=== PATIENT | male | born 1975 | race Caucasian/White ===

== ENCOUNTER 2017-07-29 23:41 | Inpatient (IN) | payer SELFPAY ==
[~2017-07-29] VITALS: Ht 190.5 cm; Wt 110.5 kg
[2017-07-29 23:47] VITALS: BP 151/100; PULSE 57; RESP 18; TEMP 98.3; O2SAT 100
[2017-07-30] VITALS (30 sets, daily range): BP systolic 112–201; BP diastolic 61–123; PULSE 52–90; RESP 15–22; TEMP 99.3–101.7; O2SAT 86–100
[2017-07-30] MEDS ORDERED: ONDANSETRON HCL 4 MG/2 ML VIAL IV PUSH ONE (00:45)
[2017-07-30] MEDS ORDERED: LORazepam 2 MG/ML VIAL ONE ×2 (00:56→01:31)
[2017-07-30] MEDS ORDERED: ROCURONIUM INJ 50 MG/5 ML VIAL ONE (01:23)
[2017-07-30] MEDS ORDERED: ETOMIDATE 40 MG/20 ML VIAL ONE (01:23)
[2017-07-30] MEDS ORDERED: PROPOFOL 500 MG/50 ML INJ 50 ML ONE (01:30)
[2017-07-30] MEDS ORDERED: niCARdipine 25 MG/NS 250 ML Vial2Bag or IV room IV PRN ×2 (01:30)
--- NOTE | 2017-07-30 01:30 | RADRPT ---
EXAM DATE/TIME: 07/30/2017 01:07 [facility] COMPARISON: No previous studies available for comparison. INDICATIONS : Cephalgia; seizure. RADIATION DOSE: 34.69 CTDIvol (mGy) MEDICAL HISTORY : Non-responsive. SURGICAL HISTORY : Non-responsive. ENCOUNTER: Initial ACUITY: 1 day PAIN SCALE: 6/10 LOCATION: cranial TECHNIQUE: Multiple contiguous axial images were obtained of the head. Using automated exposure control and adj ustment of the mA and/or kV according to patient size, radiation dose was kept as low as reasonably a chievable to obtain optimal diagnostic quality images. DICOM format image data is available electro nically for review and comparison. FINDINGS: CEREBRUM: There is subarachnoid hemorrhage seen in the suprasellar region and at the sylvian fissure regions. T he most prominent area of hemorrhage is in the right suprasellar cistern region. There is interventri cular hemorrhage in the lateral, third and fourth ventricles. There is effacement of cortical sulci. The ventricles are normal for age. No evidence of midline shift, mass lesion or acute infarction. N o focal extra-axial fluid collections are seen. POSTERIOR FOSSA: Subarachnoid hemorrhage is seen around the brainstem. The cerebellum and brainstem are intact. The 4 th ventricle is midline. The cerebellopontine angle is unremarkable. EXTRACRANIAL: The visualized portion of the orbits is intact. SKULL: The calvaria is intact. No evidence of skull fracture. CONCLUSION: Subarachnoid hemorrhage and interventricular hemorrhage. The most prominent area of focal hemorrhage is at the right suprasellar cistern region. An underlying aneurysm can be suspected. Sukhdev Damon MD on July 30, 2017 at 1:22 Board Certified Radiologist. This report was verified electronically.
--- NOTE | 2017-07-30 01:54 | PD ---
HPI Chief Complaint: GI Complaint Time Seen by Provider: 00:11 Travel History International Travel<30 days: No Contact w/Intl Traveler<30days: No Traveled to known affect area: No History of Present Illness HPI 42yo M with no significant PMH presents to the ED with c/o headache that started suddenly at 10pm. Pt's girlfriend said he had 2 episodes of stiffening up and grunting and not responding prior to coming. Said each episode lasted 2- 3 minutes. Pt is complaining about headache in the base of the head. Denies any fever, chest pain, sob, abdominal pain, focal weakness or numbness. Pt had nausea and vomiting as well. Denies any history of aneurysm. PFSH Past Medical History Medical History: Denies Significant Hx Diminished Hearing: No Tetanus Vaccination: Unknown Influenza Vaccination: No Past Surgical History Surgical History: No Previous Surgery Social History Alcohol Use: Yes (OCC) Tobacco Use: No Substance Use: No Allergies-Medications (Allergen,Severity, Reaction): Coded Allergies: No Known Allergies (Unverified , 07/29/17) Review of Systems Except as stated in HPI: all other systems reviewed are Neg Physical Exam Narrative GENERAL: 42yo M in moderate distress. SKIN: Focused skin assessment warm/dry. HEAD: Atraumatic. Normocephalic. EYES: Pupils equal and round at 3mm bilaterally. No scleral icterus. No injection or drainage. ENT: No nasal bleeding or discharge. Mucous membranes pink and moist. NECK: Trachea midline. No JVD. CARDIOVASCULAR: Regular rate and rhythm. No murmur appreciated. RESPIRATORY: No accessory muscle use. Clear to auscultation. Breath sounds equal bilaterally. GASTROINTESTINAL: Abdomen soft, non-tender, nondistended. Hepatic and splenic margins not palpable. MUSCULOSKELETAL: No obvious deformities. No clubbing. No cyanosis. No edema. NEUROLOGICAL: Awake and alert. No obvious cranial nerve deficits. Motor grossly within normal limits. Normal speech. PSYCHIATRIC: Appropriate mood and affect; insight and judgment normal. Data Data Last Documented VS Vital Signs Date Time Temp Pulse Resp B/P (MAP) Pulse Ox O2 Delivery O2 Flow Rate FiO2 07/30/17 02:45 100.8 72 16 117/67 (84) 100 Ventilator 100 07/30/17 01:[address] Brain W/O Iv Contrast(Rout) (07/30/17 ) Ondansetron Inj (Zofran Inj) (07/30/17 00:45) Lorazepam Inj (Ativan Inj) (07/30/17 00:56) Complete Blood Count With Diff (07/30/17 01:09) Comprehensive Metabolic Panel (07/30/17 01:09) Prothrombin Time / Inr (Pt) (07/30/17 01:09) Act Partial Throm Time (Ptt) (07/30/17 01:09) Magnesium (Mg) (07/30/17 01:09) Nicardipine Inj (Cardene Inj) (07/30/17 01:30) Rocuronium Inj (Zemuron Inj) (07/30/17 01:23) Etomidate Inj (Amidate Inj) (07/30/17 01:23) Propofol 500 Mg/50 Ml Inj (Diprivan 500 (07/30/17 01:30) Lorazepam Inj (Ativan Inj) (07/30/17 01:31) Chest, Single Ap (07/30/17 ) Cta Neck W Iv Contrast W 3d (07/30/17 ) Cta Brain W Iv Contrast W 3d (07/30/17 ) Nimodipine (Nimotop) (07/30/17 04:00) Propofol 1000 Mg/100 Ml Inj (Diprivan 10 (07/30/17 02:00) Electrocardiogram (07/30/17 ) Urinary Catheter Insert/Apply (07/30/17 02:26) Restraints Non-Violent SOULEYMANE.Q3H (07/30/17 02:26) Etomidate Inj (Amidate Inj) (07/30/17 02:30) Rocuronium Inj (Zemuron Inj) (07/30/17 02:30) Admit Order (Ed Use Only) (07/30/17 02:48) Lorazepam Inj (Ativan Inj) (07/30/17 03:00) Labs Laboratory Tests Test 07/30/17 01:45 White Blood Count 18.5 TH/MM3 Red Blood Count 4.67 MIL/MM3 Hemoglobin 13.3 GM/DL Hematocrit 39.7 % Mean Corpuscular Volume 85.1 FL Mean Corpuscular Hemoglobin 28.5 PG Mean Corpuscular Hemoglobin Concent 33.5 % Red Cell Distribution Width 13.5 % Platelet Count 298 TH/MM3 Mean Platelet Volume 9.3 FL Neutrophils (%) (Auto) 83.3 % Lymphocytes (%) (Auto) 11.5 % Monocytes (%) (Auto) 4.3 % Eosinophils (%) (Auto) 0.5 % Basophils (%) (Auto) 0.4 % Neutrophils # (Auto) 15.4 TH/MM3 Lymphocytes # (Auto) 2.1 TH/MM3 Monocytes # (Auto) 0.8 TH/MM3 Eosinophils # (Auto) 0.1 TH/MM3 Basophils # (Auto) 0.1 TH/MM3 CBC Comment DIFF FINAL Differential Comment Prothrombin Time 10.2 SEC Prothromb Time International Ratio 1.0 RATIO Activated Partial Thromboplast Time 22.0 SEC Blood Urea Nitrogen 19 MG/DL Creatinine 0.94 MG/DL Random Glucose 151 MG/DL Total Protein 7.0 GM/DL Albumin 3.9 GM/DL Calcium Level 8.0 MG/DL Magnesium Level 1.9 MG/DL Alkaline Phosphatase 62 U/L Aspartate Amino Transf (AST/SGOT) 20 U/L Alanine Aminotransferase (ALT/SGPT) 33 U/L Total Bilirubin 0.3 MG/DL Sodium Level 142 MEQ/L Potassium Level 3.3 MEQ/L Chloride Level 106 MEQ/L Carbon Dioxide Level 28.6 MEQ/L Anion Gap 7 MEQ/L Estimat Glomerular Filtration Rate 87 ML/MIN Phosphorus Level 2.4 MG/DL Total Creatine Kinase 302 U/L MDM Medical Decision Making Medical Screen Exam Complete: Yes Emergency Medical Condition: Yes Interpretation(s) EKG: NSR 72bpm. Normal axis. ST depression lateral leads Differential Diagnosis SAH vs. tumor vs. new onset seizure vs. electrolyte abnormality Narrative Course 42yo M with sudden onset headache at 10pm today. Pt had what sounds like 2 episodes of seizure prior to arrival. Pt then had another episode of seizure where his bilateral upper extremities were stiff and pt was not responding. Pt given 2mg of ativan and seizure resolved. Lasted less than a minute. Pt was at CT scan when another episode of seizure occurred and he was given ativan 2mg IV. Pt started becoming very hypertensive and tachycardic. CT brain showed subarachnoid hemorrhage and interventricular hemorrhage. Pt was emergently intubated in the ED. Neurosurgeon Dr. Greenfield was emergently consulted and recommends admission to ICU and started pt on nimodipine via OG tube. Recommend CTA brain and neck which was ordered. I discussed with pt's girlfriend and answered all questions. Nicardipine was initially ordered but not given since blood pressure is not elevated. Pt given nimodipine. Labs reviewed, leukocytosis [id number]. 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 Discussed with Dr. Ricardo and accepted to his service. Critical Care Narrative Aggregate critical care time was 60 minutes. Time to perform other separately billable procedures was not included in the critical care time. My time did not include minutes spent treating any other patients simultaneously or on activities that did not directly contribute to the patient's treatment. The services I provided to this patient were to treat and/or prevent clinically significant deterioration that could result in: cardiovascular collapse or . I provided critical care services requiring my management, as noted below: Chart data review, documentation time, medication orders and management, vital sign assessments/reviewing monitor data, ordering and reviewing lab tests, ordering and interpreting/reviewing x-rays and diagnostic studies, care of the patient and discussion of the patient with the admitting physicians. Procedures Procedure Narrative The patient was put in optimal position for the procedure. Rapid sequence intubation was initiated by me using 30 milligrams of etomidate IV and 100 milligrams of rocuronium IV. The patient was intubated with a 8.5 cuffed endotracheal tube. Tube placement was confirmed by visualization of the tube and balloon passing through the cords, capnometry and subsequent chest x-ray. Breath sounds were equal and well aerated bilaterally postintubation. No breath sounds over stomach. 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
[2017-07-30] MEDS ORDERED: PROPOFOL 1000 MG/100 ML INJ 100 ML IV PRN ×2 (02:00→03:30)
[2017-07-30 02:06] LABS: AUTOMATED NEUTROPHIL # 15.4 TH/MM3 (1.8-7.7); BASOPHIL # 0.1 TH/MM3 (0-0.2); BASOPHIL % 0.4 % (0.0-2.0); EOSINOPHIL # 0.1 TH/MM3 (0-0.4); EOSINOPHIL % 0.5 % (0.0-4.0); HEMATOCRIT 39.7 % (39.0-51.0); HEMOGLOBIN 13.3 GM/DL (13.0-17.0); LYMPH % 11.5 % (9.0-44.0); LYMPHOCYTE # 2.1 TH/MM3 (1.0-4.8); MEAN CELL VOLUME 85.1 FL (80.0-100.0); MEAN CORPUSCULAR HEMOGLOBIN 28.5 PG (27.0-34.0); MEAN CORPUSCULAR HGB CONC 33.5 % (32.0-36.0); MEAN PLATELET VOLUME 9.3 FL (7.0-11.0); MONO % 4.3 % (0.0-8.0); MONOCYTE # 0.8 TH/MM3 (0-0.9); NEUT % 83.3 % (16.0-70.0); PLATELET COUNT 298 TH/MM3 (150-450); RED BLOOD COUNT 4.67 MIL/MM3 (4.50-5.90); RED CELL DISTRIBUTION WIDTH 13.5 % (11.6-17.2); WHITE BLOOD COUNT 18.5 TH/MM3 (4.0-11.0)
--- NOTE | 2017-07-30 02:10 | RADRPT ---
EXAM DATE/TIME: 07/30/2017 01:43 [facility] COMPARISON: No previous studies available for comparison. INDICATIONS : Post intubation MEDICAL HISTORY : Non-responsive SURGICAL HISTORY : Non-responsive ENCOUNTER: Initial ACUITY: 1 day PAIN SCORE: Non-responsive. LOCATION: Bilateral chest FINDINGS: The ET tube is well placed with the tip 2.7 cm from the poncho. The NG tube is directed into the stom ach. The heart size is normal. The lungs are clear. CONCLUSION: ET tube and NG tube in good position. Sukhdev Damon MD on July 30, 2017 at 2:07 Board Certified Radiologist. This report was verified electronically.
[2017-07-30 02:15] LABS: PROTHROMBIN TIME - PATIENT 10.2 SEC (9.8-11.6)
[2017-07-30 02:27] LABS: ALBUMIN 3.9 GM/DL (3.4-5.0); ALT (GPT) 33 U/L (12-78); AST (GOT) 20 U/L (15-37); BICARBONATE 28.6 MEQ/L (21.0-32.0); BLOOD UREA NITROGEN 19 MG/DL (7-18); CHLORIDE 106 MEQ/L (98-107); CREATININE 0.94 MG/DL (0.60-1.30); GLOMERULAR FILTRATION RATE 87 ML/MIN (>89); GLUCOSE,RANDOM 151 MG/DL (74-106); MAGNESIUM 1.9 MG/DL (1.5-2.5); SODIUM (NA) 142 MEQ/L (136-145)
[2017-07-30 02:30] LABS: ALKALINE PHOSPHATASE 62 U/L (45-117); TOTAL BILIRUBIN ADULT 0.3 MG/DL (0.2-1.0)
[2017-07-30] MEDS ORDERED: ETOMIDATE 20 MG/10 ML VIAL IV PUSH ONE (02:30)
[2017-07-30] MEDS ORDERED: ROCURONIUM INJ 100 MG/10 ML VIAL IV ONE (02:30)
[2017-07-30] MEDS ORDERED: LORazepam 2 MG/ML VIAL IV PUSH ONE (03:00)
[2017-07-30] MEDS ORDERED: IOHEXOL 350 MG/ML 10 ML VIAL (for RAD DIAG) IVCONTRAST ONE (03:16)
[2017-07-30] MEDS ORDERED: SODIUM CHLOR 0.9% 1000 ML INJ 1,000 ML IV SCH (03:19)
[2017-07-30] MEDS ORDERED: POTASSIUM PHOSPHATE MONOBASIC 500 MG TAB PO/TUBE PRN (03:30)
[2017-07-30] MEDS ORDERED: ONDANSETRON HCL 4 MG/2 ML VIAL IV PUSH PRN (03:30)
[2017-07-30] MEDS ORDERED: POTASSIUM CHLORIDE 25 MEQ EFFERVESCENT TAB PO PRN (03:30)
[2017-07-30] MEDS ORDERED: POTASSIUM CHLOR 40 MEQ PREMIX 100 ML IV PRN ×2 (03:30)
[2017-07-30] MEDS ORDERED: POTASSIUM PHOSPHATE INJ 30 MMOL in SODIUM CHLOR 0.9% 250 ML INJ 250 ML IV PRN (03:30)
[2017-07-30] MEDS ORDERED: MAGNESIUM OXIDE 400 MG TAB PO PRN (03:30)
[2017-07-30] MEDS ORDERED: POTASSIUM PHOSPHATE MONOBASIC 500 MG TAB PO PRN (03:30)
[2017-07-30] MEDS ORDERED: SENNOSIDES 8.6 MG TAB PO PRN (03:30)
[2017-07-30] MEDS ORDERED: MAGNESIUM HYDROXIDE SUSP 30 ML CUP PO PRN (03:30)
[2017-07-30] MEDS ORDERED: SODIUM PHOSPHATE INJ 30 MMOL in SODIUM CHLOR 0.9% 250 ML INJ 240 ML IV PRN (03:30)
[2017-07-30] MEDS ORDERED: MAGNESIUM SULFATE INJ 2 GM in SODIUM CHLORIDE 0.9% INJ 96 ML IV PRN (03:30)
[2017-07-30] MEDS ORDERED: SODIUM CHLORIDE 0.9% FLUSH 10 ML FLUSH IV FLUSH PRN (03:30)
[2017-07-30] MEDS ORDERED: MISCELLANEOUS NURSING INFORMATION XX SCH (03:30)
[2017-07-30] MEDS ORDERED: LORazepam 2 MG/ML VIAL IV PUSH PRN (03:30)
[2017-07-30] MEDS ORDERED: MAGNESIUM SULFATE INJ 4 GM in SODIUM CHLORIDE 0.9% INJ 92 ML IV PRN (03:30)
[2017-07-30] MEDS ORDERED: MORPHINE SULFATE 2 MG/ML INJ IV PUSH PRN (03:30)
[2017-07-30] MEDS ORDERED: LACTULOSE SYRUP 20 GM/30 ML CUP PO PRN (03:30)
[2017-07-30] MEDS ORDERED: CHLORHEXIDINE GLUCONATE 2 % 1 PACK (2 CLOTHS) TOP PRN (03:30)
[2017-07-30] MEDS ORDERED: niCARdipine INJ 25 MG in SODIUM CHLOR 0.9% 250 ML INJ 240 ML IV PRN (03:30)
[2017-07-30] MEDS ORDERED: BISACODYL 10 MG SUPP RECTAL PRN (03:30)
[2017-07-30] MEDS ORDERED: RESP: ALBUTEROL 2.5 MG/IPRATROPIUM 0.5 MG NEB (PRN) INH (03:30)
[2017-07-30] MEDS ORDERED: ACETAMINOPHEN 325 MG TAB PO PRN (03:30)
[2017-07-30] MEDS ORDERED: POTASSIUM CHLOR 20 MEQ PREMIX 100 ML IV PRN ×2 (03:30)
[2017-07-30] MEDS ORDERED: MIDAZOLAM HCL 2 MG/2 ML VIAL IV PUSH PRN (03:30)
--- NOTE | 2017-07-30 03:38 | RADRPT ---
EXAM DATE/TIME: 07/30/2017 02:59 [facility] COMPARISON: No previous studies available for comparison. INDICATIONS : Cephalgia. IV CONTRAST: 75 cc Omnipaque 350 (iohexol) IV ; Cumulative dose for multiple exams. RADIATION DOSE: 10.71 CTDIvol (mGy) ; Combined studies MEDICAL HISTORY : None SURGICAL HISTORY : None. ENCOUNTER: Initial ACUITY: 1 day PAIN SCALE: Non-responsive LOCATION: cranial TECHNIQUE: Volumetric scanning was performed using a multi-row detector CT scanner. The data was post processed with a variety of visualization algorithms including full volume maximum intensity projection, multi -planar sliding thin slab reformation, curved planar reformation, and surface rendering techniques. Using automated exposure control and adjustment of the mA and/or kV according to patient size, radiat ion dose was kept as low as reasonably achievable to obtain optimal diagnostic quality images. DICO M format image data is available electronically for review and comparison. FINDINGS: There is a 1.3 x 1.2 x 0.9 cm aneurysm seen in the posterior fossa. This is at the anastomosis betwee n the 2 vertebral arteries at the base of the proximal basilar artery. No other aneurysm is seen. The arterial structures otherwise appear normal. 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 Sukhdev Damon MD on July 30, 2017 at 3:33 Board Certified Radiologist. This report was verified electronically.
--- NOTE | 2017-07-30 03:52 | HHI.HP ---
HPI Service Critical Care Medicine Primary Care Physician No Primary Care Physician Admission Diagnosis SAH Diagnosis: Travel History International Travel<30 Days: No Contact w/Intl Traveler <30 Da: No Traveled to Known Affected Are: No History of Present Illness 42-year-old gentleman with no significant PMH presents with complaints of headache that started suddenly at 10pm. Per chart report and the patient's girlfriend he had 2 episodes of stiffening up and grunting and not responding prior to coming. She said each episode lasted 2-3 minutes. In the emergency department the patient was complaining of headache in the base of the head. Denies any fever, chest pain, sob, abdominal pain, focal weakness or numbness. He had another episode of seizure-like activity in the CAT scan and was intubated by ED attending for an airway protection. The CT head shows subarachnoid bleed with intraventricular extension. The case was discussed with neurosurgeon furnace mason who recommended nimodipine and CTA. Further recommendations pending based on CT results. Review of Systems ROS Unobtainable patient is sedated and intubated Past Family Social History Allergies: Coded Allergies: No Known Allergies (Unverified , 07/29/17) Past Medical History None Past Surgical History None Reported Medications None Active Ordered Medications Current Medications Medications (Trade) Dose Ordered Sig/Erin Route PRN Reason Start Time Stop Time Status Last Admin Dose Admin Nimodipine (Nimotop) 60 mg Q4HR NG 07/30/17 04:00 07/30/17 02:09 Propofol 100 ml @ 6.27 mls/hr TITRATE PRN IV SEDATION 07/30/17 02:00 07/30/17 02:39 Potassium Chloride 100 ml @ 50 mls/hr Q2H PRN IV For Potassium 2.8 - 3.2 mEq/L 07/30/17 03:30 Potassium Chloride 100 ml @ 50 mls/hr Q2H PRN IV For Potassium 2.8 - 3.2 mEq/L 07/30/17 03:30 Potassium Bicarb/ Potassium Chloride (K-Lyte Cl Eff) 50 meq UNSCH PRN PO For Potassium 3.3 - 3.5 mEq/L 07/30/17 03:30 Potassium Chloride 100 ml @ 25 mls/hr UNSCH PRN IV For Potassium 3.3 - 3.5 mEq/L 07/30/17 03:30 Potassium Chloride 100 ml @ 50 mls/hr Q2H PRN IV For Potassium 3.3 - 3.5 mEq/L 07/30/17 03:30 Magnesium Sulfate 4 gm/Sodium Chloride 100 ml @ 50 mls/hr UNSCH PRN IV For Magnesium 0.9 - 1.1 mg/dL 07/30/17 03:30 Magnesium Oxide (Mag-Ox) 800 mg UNSCH PRN PO For Magnesium 1.2 - 1.6 mg/dL 07/30/17 03:30 Magnesium Sulfate 2 gm/Sodium Chloride 100 ml @ 50 mls/hr UNSCH PRN IV For Magnesium 1.2 - 1.6 mg/dL 07/30/17 03:30 Potassium Phosphate (K-Phos) 2,000 mg Q4H PRN PO For Phosphorus < 2.5 mg/dL 07/30/17 03:30 Sodium Phosphate 30 mmol/Sodium Chloride 250 ml @ 42 mls/hr UNSCH PRN IV For Phosphorus < 2.5 mg/dL 07/30/17 03:30 Potassium Phosphate (K-Phos) 2,000 mg UNSCH PRN PO/TUBE SEE LABEL COMMENTS 07/30/17 03:30 Potassium Phosphate 30 mmol/ Sodium Chloride 260 ml @ 42 mls/hr UNSCH PRN IV SEE LABEL COMMENTS 07/30/17 03:30 Sodium Chloride 1,000 ml @ 84 mls/hr [id number] IV 07/30/17 03:19 Sodium Chloride (NS Flush) 2 ml UNSCH PRN IV FLUSH FLUSH AFTER USING IV ACCESS 07/30/17 03:30 UNV Sodium Chloride (NS Flush) 2 ml BID IV FLUSH 07/30/17 09:00 UNV Acetaminophen (Tylenol) 650 mg Q6H PRN PO PAIN 1-5 AND/OR FEVER >101F 07/30/17 03:30 UNV Morphine Sulfate (Morphine Inj) 2 mg Q2H PRN IV PUSH PAIN SCALE 6 TO 10 07/30/17 03:30 UNV Famotidine (Pepcid Inj) 20 mg Q12HR IV PUSH 07/30/17 09:00 UNV Midazolam HCl (Versed Inj) 2 mg Q1H PRN IV PUSH SEDATION 07/30/17 03:30 UNV Lorazepam (Ativan Inj) 1 mg Q1H PRN IV PUSH seizure 07/30/17 03:30 Artificial Tears (Tears Naturale Opth Soln) 1 drop TID EACH EYE 07/30/17 09:00 UNV Ondansetron HCl (Zofran Inj) 4 mg Q6H PRN IV PUSH NAUSEA OR VOMITING 07/30/17 03:30 UNV Albuterol/ Ipratropium (Duoneb Neb) 1 ampule Q2HR NEB PRN INH WHEEZING 07/30/17 03:30 UNV Miscellaneous Information 1 [id number] XX 07/30/17 03:30 UNV Chlorhexidine Gluconate (Chlorhexidine 2% Cloth) 3 pack Taper DAILY@04 TOP 07/30/17 04:00 07/26/18 03:59 UNV Chlorhexidine Gluconate (Chlorhexidine 2% Cloth) 3 pack UNSCH PRN TOP HYGIENIC CARE 07/30/17 03:30 UNV Senna/Docusate Sodium (Amaya-Colace) 1 tab BID PO 07/30/17 09:00 UNV Magnesium Hydroxide (Milk Of Magnesia Liq) 30 ml Q12H PRN PO Mild constipation 07/30/17 03:30 UNV Sennosides (Senokot) 17.2 mg Q12H PRN PO Moderate constipation 07/30/17 03:30 UNV Bisacodyl (Dulcolax Supp) 10 mg DAILY PRN RECTAL SEVERE CONSITIPATION 07/30/17 03:30 UNV Lactulose (Lactulose Liq) 30 ml DAILY PRN PO SEVERE CONSITIPATION 07/30/17 03:30 UNV Chlorhexidine Gluconate (Peridex 0.12% Liq) 15 ml BID@08,20 MT 07/30/17 08:00 UNV Propofol 100 ml @ 10 mls/hr TITRATE PRN IV SEDATION 07/30/17 03:30 Levetriacetam 100 ml @ 400 mls/hr Q12HR IV 07/30/17 09:00 UNV Nimodipine (Nimotop) 60 mg Q4HR PO 07/30/17 04:00 UNV Nicardipine HCl 25 mg/Sodium Chloride 250 ml @ 50 mls/hr TITRATE PRN IV Blood pressure management 07/30/17 03:30 UNV Family History Unobtainable Social History Alcohol Use: Yes (OCC) Tobacco Use: No Substance Use: No Physical Exam Vital Signs Vital Signs Date Time Temp Pulse Resp B/P (MAP) Pulse Ox O2 Delivery O2 Flow Rate FiO2 07/30/17 03:11 71 16 120/63 (82) 100 Ventilator 100 07/30/17 02:10 100.0 64 16 131/91 (104) 100 Ventilator 100 07/30/17 02:09 100 07/30/17 02:05 66 16 130/87 (101) 100 Ventilator 100 07/30/17 02:00 62 16 132/90 (104) 100 Ventilator 100 07/30/17 01:55 99.3 80 16 139/84 (102) 100 Ventilator 100 07/30/17 01:52 99.3 68 16 127/78 (94) 100 Ventilator 100 07/30/17 01:48 73 22 137/76 (96) 99 07/30/17 01:36 62 22 122/84 (97) 90 07/30/17 01:26 64 15 201/123 (149) 100 Nasal Cannula 15.00 07/30/17 01:20 99 15.00 100 07/30/17 01:11 52 16 159/77 (104) 99 Nasal Cannula 2.00 07/29/17 23:47 98.3 57 18 151/100 (117) 100 Physical Exam GENERAL: Sedated and intubated SKIN: Focused skin assessment warm/dry. HEAD: Atraumatic. Normocephalic. EYES: Pupils equal and round. No scleral icterus. No injection or drainage. Briskly reactive to light bilaterally ENT: No nasal bleeding or discharge. Mucous membranes pink and moist. NECK: Trachea midline. No JVD. CARDIOVASCULAR: Regular rate and rhythm. No murmur appreciated. RESPIRATORY: No accessory muscle use. Clear to auscultation. Breath sounds equal bilaterally. GASTROINTESTINAL: Abdomen soft, non-tender, nondistended. Hepatic and splenic margins not palpable. MUSCULOSKELETAL: No obvious deformities. No clubbing. No cyanosis. No edema. NEUROLOGICAL: Sedated and intubated. Laboratory Laboratory Tests Test 07/30/17 01:45 White Blood Count 18.5 Red Blood Count 4.67 Hemoglobin 13.3 Hematocrit 39.7 Mean Corpuscular Volume 85.1 Mean Corpuscular Hemoglobin 28.5 Mean Corpuscular Hemoglobin Concent 33.5 Red Cell Distribution Width 13.5 Platelet Count 298 Mean Platelet Volume 9.3 Neutrophils (%) (Auto) 83.3 Lymphocytes (%) (Auto) 11.5 Monocytes (%) (Auto) 4.3 Eosinophils (%) (Auto) 0.5 Basophils (%) (Auto) 0.4 Neutrophils # (Auto) 15.4 Lymphocytes # (Auto) 2.1 Monocytes # (Auto) 0.8 Eosinophils # (Auto) 0.1 Basophils # (Auto) 0.1 CBC Comment DIFF FINAL Differential Comment Prothrombin Time 10.2 Prothromb Time International Ratio 1.0 Activated Partial Thromboplast Time 22.0 Blood Urea Nitrogen 19 Creatinine 0.94 Random Glucose 151 Total Protein 7.0 Albumin 3.9 Calcium Level 8.0 Magnesium Level 1.9 Alkaline Phosphatase 62 Aspartate Amino Transf (AST/SGOT) 20 Alanine Aminotransferase (ALT/SGPT) 33 Total Bilirubin 0.3 Sodium Level 142 Potassium Level 3.3 Chloride Level 106 Carbon Dioxide Level 28.6 Anion Gap 7 Estimat Glomerular Filtration Rate 87 Result Diagram: 07/30/17 0145 07/30/17 0145 Imaging Last [address] 07/30/17 0000 Signed Impressions: Service Date/Time: July 01:07 - CONCLUSION: Subarachnoid hemorrhage and interventricular hemorrhage. The most prominent area of focal hemorrhage is at the right suprasellar cistern region. An underlying aneurysm can be suspected. Sukhdev Damon MD Chest X-Ray 07/30/17 0000 Signed Impressions: Service Date/Time: July 01:43 - CONCLUSION: ET tube and NG tube in good position. Sukhdev Damon MD Septic Shock Reassessment Septic shock perfusion: reassessment completed Caprini VTE Risk Assessment Caprini VTE Risk Assessment: Mod/High Risk (score >= 2) VTE Pharm Contraindication: Hemorrhage Caprini Risk Assessment Model Point Value = 1 Point Value = 2 Point Value = 3 Point Value = 5 Age 41-60 Minor surgery BMI > 25 kg/m2 Swollen legs Varicose veins or History of unexplained or recurrent spontaneous Oral contraceptives or hormone replacement Sepsis (< 1 month) Serious lung disease, including pneumonia (< 1 month) Abnormal pulmonary function Acute myocardial infarction Congestive heart failure (< 1 month) History of inflammatory bowel disease Medical patient at bed rest Age 61-74 Arthroscopic surgery Major open surgery (> 45 min) Laparoscopic surgery (> 45 min) Malignancy Confined to bed (> 72 hours) Immobilizing plaster cast Central venous access Age >= 75 History of VTE Family history of VTE Factor V Leiden Prothrombin [id number] Lupus anticoagulant Anticardiolipin antibodies Elevated serum homocysteine Heparin-induced thrombocytopenia Other congenital or acquired thrombophilia Stroke (< 1 month) Elective arthroplasty Hip, pelvis, or leg fracture Acute spinal cord injury (< 1 month) Prophylaxis Regimen Total Risk Factor Score Risk Level Prophylaxis Regimen 0-1 Low Early ambulation 2 Moderate Order ONE of the following: *Sequential Compression Device (SCD) *Heparin 5000 units SQ BID 3-4 Higher Order ONE of the following medications: *Heparin 5000 units SQ TID *Enoxaparin/Lovenox 40 mg SQ daily (WT < 150 kg, CrCl > 30 mL/min) *Enoxaparin/Lovenox 30 mg SQ daily (WT < 150 kg, CrCl > 10-29 mL/min) *Enoxaparin/Lovenox 30 mg SQ BID (WT < 150 kg, CrCl > 30 mL/min) AND/OR *Sequential Compression Device (SCD) 5 or more Highest Order ONE of the following medications: *Heparin 5000 units SQ TID (Preferred with Epidurals) *Enoxaparin/Lovenox 40 mg SQ daily (WT < 150 kg, CrCl > 30 mL/min) *Enoxaparin/Lovenox 30 mg SQ daily (WT < 150 kg, CrCl > 10-29 mL/min) *Enoxaparin/Lovenox 30 mg SQ BID (WT < 150 kg, CrCl > 30 mL/min) AND *Sequential Compression Device (SCD) Assessment and Plan Assessment and Plan Respiratory failure - Intubated for an airway protection - No weaning until neurologically stable - CXR and ABG daily - Endtital CO2 monitor - goal 31-35 Subarachnoid hemophage - With IVH extension - CTA pending - Intubated for an airway protection - Nimodipine - TCD's daily - Neurosurgical consultation for EVD placement - Cerebral angiogram today Seizure - Due to above - Keppra Hypertension - Nicardipine drip to keep SBP less than 140 Hypokalemia - ICU electrolyte replacement protocol DVT GI prophylaxis - Teds SCDs - No pharmacological DVT prophylaxis due to acute intracranial bleed - Pepcid Critical Care: The total critical care time was 35 minutes. Time to perform other separately billable procedures was not included in the critical care time. Yoel Ricardo MD Jul 30, 2017 3:52 am
[2017-07-30] MEDS ORDERED: CHLORHEXIDINE GLUCONATE 2 % 1 PACK (2 CLOTHS) TOP SCH (04:00)
[2017-07-30] MEDS ORDERED: niMODipine 30 MG CAP PO SCH (04:00)
[2017-07-30] MEDS ORDERED: niMODipine 30 MG CAP NG SCH (04:00)
--- NOTE | 2017-07-30 04:12 | RADRPT ---
EXAM DATE/TIME: 07/30/2017 02:57 [place] COMPARISON: No previous studies available for comparison. INDICATIONS : Cephalgia. IV CONTRAST: 75 cc Omnipaque 350 (iohexol) IV ; Cumulative dose for multiple exams. RADIATION DOSE: 10.71 CTDIvol (mGy) ; Combined studies MEDICAL HISTORY : None SURGICAL HISTORY : None. ENCOUNTER: Initial ACUITY: 1 day PAIN SCALE: Non-responsive LOCATION: Bilateral neck Elevated flow velocities and ICA/CCA ratios have been found to correlate with increased degrees of vessel stenosis, calculated as percentage of diameter relative to a normal segment of distal ICA/CCA. TECHNIQUE: Volumetric scanning was performed using a multirow detector CT scanner. The data was post processed with a variety of visualization algorithms including full-volume maximum intensity projection, multip lanar sliding thin-slab reformation, curved-planar reformation, and surface-rendering techniques. Us ing automated exposure control and adjustment of the mA and/or kV according to patient size, radiatio n dose was kept as low as reasonably achievable to obtain optimal diagnostic quality images. DICOM f ormat image data is available electronically for review and comparison. FINDINGS: AORTIC ARCH: There is a three-vessel origin of the great vessels from the aorta. No evidence of ostial narrowing. RIGHT CAROTID: The common carotid artery is intact. The carotid bulb has a normal configuration without ulceration o r narrowing. The internal carotid artery lumen is smooth without stenosis. The external carotid froylan ry is intact. LEFT CAROTID: The common carotid artery is intact. The carotid bulb has a normal configuration without ulceration or narrowing. The internal carotid artery lumen is smooth without stenosis. The external carotid ar terrell is intact. VERTEBRALS: The vertebral arteries have a symmetric diameter. No stenotic lesions are seen. CONCLUSION: Normal CTA of the neck. Sukhdev Damon MD on July 30, 2017 at 4:08 Board Certified Radiologist. This report was verified electronically.
[2017-07-30 04:34] LABS: PHOSPHORUS 2.4 MG/DL (2.5-4.9)
[2017-07-30] MEDS: PROPOFOL 1000 MG/100 ML IV PRN ×2 (05:18→08:49)
[2017-07-30] MEDS: niMODipine 30 MG CAP PO SCH ×2 (06:09→09:41)
[2017-07-30] MEDS ORDERED: CHLORHEXIDINE 0.12% (ORAL KIT) 15 ML CUP MT SCH (08:00)
[2017-07-30] MEDS ORDERED: DOCUSATE SODIUM 50 MG/SENNA 8.6 MG TAB PO SCH (09:00)
[2017-07-30] MEDS ORDERED: FAMOTIDINE 20 MG/2 ML VIAL IV PUSH SCH (09:00)
[2017-07-30] MEDS ORDERED: levETIRAcetam INJ 100 ML IV SCH (09:00)
[2017-07-30] MEDS ORDERED: SODIUM CHLORIDE 0.9% FLUSH 10 ML FLUSH IV FLUSH SCH (09:00)
[2017-07-30] MEDS ORDERED: ARTIFICIAL TEARS OPTH SOLN 15 ML BTL EACH EYE SCH (09:00)
[2017-07-30] MEDS ORDERED: MIDAZOLAM HCL 5 MG/ML VIAL (1 ML) ONE (09:24)
[2017-07-30] MEDS ORDERED: fentaNYL DRIP 250 ML IV PRN (10:15)
--- NOTE | 2017-07-30 10:29 | PD.CONS ---
History of Present Illness Service Neurosurgery Consult Requested By Paper Reel Operator- Reason for Consult Aneurysmal subarachnoid hemorrhage Primary Care Physician No Primary Care Physician Diagnoses: History of Present Illness 42-year-old male presented to the emergency room late last evening after acute onset of severe headache at approximately 10 PM on 07/29/17. He had a couple episodes of stiffening of the extremities and a grunting type sound prior to arriving in the emergency room. His girlfriend who was with him states that these episodes each lasted for 2 or 3 minutes. The patient was awake initially in the emergency room complaining of a headache. He had another seizure type episode in the CT scanning suite and was subsequently intubated in the emergency room. He was given Keppra. He has since been admitted to the surgical intensive care unit. Nimodipine has been initiated. His blood pressure has been in the low 100s and stable. Keppra was started in the emergency room. Intensive care nursing staff states that the patient was moving all extremities semi-purposeful upon arrival initially in the intensive care unit. He is being maintained on intravenous sedation with propofol. The family states that the patient has had no recent symptoms. No previous headaches. There is a family history of aneurysm in the patient's father. Review of Systems Unable to obtain review of systems from the patient. According to the family he has had no recent medical complaints. Past Family Social History Allergies: Coded Allergies: No Known Allergies (Unverified , 07/29/17) Past Medical History Past medical, social, previous surgical history obtained from the family History of cardiac, pulmonary, gastrointestinal disease, diabetes, hypertension. Past Surgical History No major surgeries reported Reported Medications He is on no medications Family History Positive for aneurysm and cancer in the patient's father Social History Does not smoke cigarettes. No significant alcohol use Physical Exam Vital Signs Vital Signs Date Time Temp Pulse Resp B/P (MAP) Pulse Ox O2 Delivery O2 Flow Rate FiO2 07/30/17 10:00 90 07/30/17 08:59 100 50 07/30/17 08:23 100 100 07/30/17 08:00 67 07/30/17 08:00 101.7 67 16 122/74 (90) 100 07/30/17 08:00 100 07/30/17 07:00 100 Mechanical Ventilator 100 07/30/17 06:00 64 07/30/17 04:24 100 100 1/18/18 04:00 101.1 69 17 114/67 (83) 100 18 04:00 69 18 04:00 100 18 04:00 100 Mechanical Ventilator 100 07/30/17 03:30 18 03:20 100 100 18 03:11 71 16 120/63 (82) 100 Ventilator 100 18 03:10 100 100 18 02:55 100.8 72 16 117/67 (84) 100 Ventilator 100 07/30/17 02:50 100.8 72 16 120/65 (83) 100 Ventilator 100 07/30/17 02:45 100.8 72 16 117/67 (84) 100 Ventilator 100 07/30/17 02:40 100.8 72 16 121/63 (82) 100 Ventilator 100 07/30/17 02:35 100.4 70 16 112/61 (78) 100 Ventilator 100 07/30/17 02:30 100.4 72 16 121/67 (85) 100 Ventilator 100 07/30/17 02:25 100.4 70 16 125/69 (87) 100 Ventilator 100 07/30/17 02:20 100.4 70 16 119/76 (90) 100 Ventilator 100 07/30/17 02:15 100.0 70 16 119/74 (89) 100 Ventilator 100 07/30/17 02:10 100.0 64 16 131/91 (104) 100 Ventilator 100 07/30/17 02:09 100 07/30/17 02:05 66 16 130/87 (101) 100 Ventilator 100 07/30/17 02:00 62 16 132/90 (104) 100 Ventilator 100 07/30/17 01:55 99.3 80 16 139/84 (102) 100 Ventilator 100 07/30/17 01:52 99.3 68 16 127/78 (94) 100 Ventilator 100 07/30/17 01:48 73 22 137/76 (96) 99 18 01:45 100 100 18 01:36 62 22 122/84 (97) 90 07/30/17 01:26 64 15 201/123 (149) 100 Nasal Cannula 15.00 07/30/17 01:20 99 15.00 100 07/30/17 01:11 52 16 159/77 (104) 99 Nasal Cannula 2.00 07/29/17 23:47 98.3 57 18 151/100 (117) 100 Physical Exam GENERAL: This is a well-nourished, well-developed patient, no apparent distress. SKIN: No abrasions, contusion, rash noted. Skin warm and dry. HEAD: Atraumatic. Normocephalic. No temporal or scalp tenderness. EYES: Sclerae are clear and nonicteric ENT: No facial edema or ecchymosis. No periorbital edema. No CSF otorrhea or rhinorrhea. No palpable facial fracture or deformity. NECK: Trachea midline. No cervical spine tenderness. CARDIOVASCULAR: Regular rate and rhythm without murmurs, gallops, or rubs. RESPIRATORY: Clear to auscultation. Breath sounds equal bilaterally. No wheezes , rales, or rhonchi. GASTROINTESTINAL: Abdomen soft, non-tender, nondistended. No hepato-splenomegaly , or palpable masses. No guarding. MUSCULOSKELETAL: Extremities without cyanosis, or edema. No joint tenderness, or edema noted. No calf tenderness. Dorsalis pedis pulses 2+ bilateral NEUROLOGICAL: The patient is intubated on propofol. Does not follow commands No eye opening to pain, spontaneous, or to voice. Pupils 4 mm slowly reactive to 3 mm. Slightly disconjugate wandering gaze. No facial grimacing to deep pain He nearly localizes with the right upper extremity to deep pain over the chest, moderate flexion of the left upper extremity to deep pain. Mild withdrawal lower extremities to deep pain. No extensor posturing noted. Suzy's absent bilaterally No ankle clonus Plantar responses absent bilateral Fine motor movements intact upper extremities Laboratory Laboratory Tests Test 07/30/17 01:45 07/30/17 04:30 07/30/17 04:45 07/30/17 08:41 White Blood Count 18.5 Red Blood Count 4.67 Hemoglobin 13.3 Hematocrit 39.7 Mean Corpuscular Volume 85.1 Mean Corpuscular Hemoglobin 28.5 Mean Corpuscular Hemoglobin Concent 33.5 Red Cell Distribution Width 13.5 Platelet Count 298 Mean Platelet Volume 9.3 Neutrophils (%) (Auto) 83.3 Lymphocytes (%) (Auto) 11.5 Monocytes (%) (Auto) 4.3 Eosinophils (%) (Auto) 0.5 Basophils (%) (Auto) 0.4 Neutrophils # (Auto) 15.4 Lymphocytes # (Auto) 2.1 Monocytes # (Auto) 0.8 Eosinophils # (Auto) 0.1 Basophils # (Auto) 0.1 CBC Comment DIFF FINAL Differential Comment Prothrombin Time 10.2 Prothromb Time International Ratio 1.0 Activated Partial Thromboplast Time 22.0 Blood Urea Nitrogen 19 Creatinine 0.94 Random Glucose 151 Total Protein 7.0 Albumin 3.9 Calcium Level 8.0 Magnesium Level 1.9 Alkaline Phosphatase 62 Aspartate Amino Transf (AST/SGOT) 20 Alanine Aminotransferase (ALT/SGPT) 33 Total Bilirubin 0.3 Sodium Level 142 Potassium Level 3.3 Chloride Level 106 Carbon Dioxide Level 28.6 Anion Gap 7 Estimat Glomerular Filtration Rate 87 Phosphorus Level 2.4 Total Creatine Kinase 302 Urine Opiates Screen NEG Urine Barbiturates Screen NEG Urine Amphetamines Screen NEG Urine Benzodiazepines Screen NEG Urine Cocaine Screen NEG Urine Cannabinoids Screen NEG Nasal Screen MRSA (PCR) MRSA NOT DETECTED Blood Gas Puncture Site LT RADIAL Blood Gas Patient Temperature 98.6 Blood Gas HCO3 24 Blood Gas Base Excess 0.2 Blood Gas Oxygen Saturation 98 Arterial Blood pH 7.47 Arterial Blood Partial Pressure CO2 33 Arterial Blood Partial Pressure O2 500 Arterial Blood Oxygen Content 19.4 Arterial Blood Carboxyhemoglobin 0.7 Arterial Blood Methemoglobin 1.0 Blood Gas Hemoglobin 13.1 Oxygen Delivery Device VENTILATOR Blood Gas Ventilator Setting A/C 16/600/ PEEP 5 Blood Gas Inspired Oxygen 100 Result Diagram: 07/30/17 0145 07/30/17 0145 Imaging 07/30/17 CT scan of the head and CT angiogram of the head and neck images are reviewed by the undersigned. Mild ventricular enlargement. Agree with findings as noted below: Neck CTA 07/30/17 0000 Signed Impressions: Service Date/Time: July 02:57 - CONCLUSION: Normal CTA of the neck. 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 Sukhdev Damon MD Head CT 07/30/17 0000 Signed Impressions: Service Date/Time: July 01:07 - CONCLUSION: Subarachnoid hemorrhage and interventricular hemorrhage. The most prominent area of focal hemorrhage is at the right suprasellar cistern region. An underlying aneurysm can be suspected. Sukhdev Damon MD Chest X-Ray 07/30/17 0000 Signed Impressions: Service Date/Time: July 01:43 - CONCLUSION: ET tube and NG tube in good position. Sukhdev Damon MD Assessment and Plan Assessment and Plan Impression: 1. Aneurysmal subarachnoid hemorrhage. 2. 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 This does not have a well- defined neck. Her conditions: Findings were discussed with interventional radiology. They have recommended transfer to [facility] for consideration of endovascular treatment of the aneurysm, potentially with Pipeline device which is not available at this institution. Discussed at length with family. A ventriculostomy catheter is recommended. The risks and possible complications and indications for the catheter had been discussed, consents obtained in the intensive care unit and all questions answered. They agree with transfer to [facility] for further treatment. Patient has been discussed with [facility] with neurosurgery accepting. Abilio Greenfield MD Jul 30, 2017 10:29
--- NOTE | 2017-07-30 10:32 | PD.OP ---
Operative Report Date of Surgery: Jul 30, 2017 Preoperative Diagnosis: (1) Subarachnoid hemorrhage from basilar artery aneurysm Aneurysmal subarachnoid hemorrhage Approximate 13 mm aneurysm at the vertebrobasilar junction. Ventriculomegaly related to subarachnoid hemorrhage. 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 Ventriculomegaly related to subarachnoid hemorrhage. Procedure: Indications: Ventriculomegaly related to acute subarachnoid hemorrhage from vertebrobasilar junction aneurysm. Procedure in detail: The procedure was performed in the surgical intensive care unit. The procedure, risks, and possible complications were fully explained to the patient's family prior to the procedure and consent obtained and witnessed. Appropriate timeout procedure was performed with all personnel present and in agreement The patient was placed in supine position with the head and neck in neutral position and the head of the bed elevated approximately 20. The right frontal region was shaved with clippers and sterilely prepped and draped. One percent Xylocaine without epinephrine was used for local infiltration over the small incision site which was made approximately 9-10 cm above the right supraorbital rim, approximately 3-1/2 to 4 cm lateral to the midline, in the mid pupillary line just anterior to the coronal suture. The hand drill was used to make a single twist drill opening in the cranium and the dura was perforated with the trocar. The Codman Bactiseal ventriculostomy catheter was advanced to a depth of 6-7 cm intracranial in a single pass with good return of spinal fluid. Opening pressure was 15 centimeter water The catheter was tunneled to the posterior frontal region with a trocar and secured to the skin with 3-0 nylon suture which was also used to close the small incision. A sterile bactericidal dressing was applied The catheter was connected to the drainage reservoir, and there was good drainage of fluid. The patient's neurologic exam remained stable following the procedure No specimen was sent There was no significant bleeding Surgeon: Abilio Greenfield Leveler Helper(s): Abilio Skinner MD Jul 30, 2017 10:32
[2017-07-30] MEDS ORDERED: MIDAZOLAM HCL 5 MG/ML VIAL (1 ML) IV ONE (11:00)
--- NOTE | 2017-07-30 22:05 | EKG ---
Date Performed: 07/30/2017 Time Performed: 02:27:48 PTAGE: 42 years EKG: Sinus rhythm NONSPECIFIC ST & T-WAVE ABNORMALITY BORDERLINE ECG NO PREVIOUS TRACING DOCTOR: Alexandro Wesley Interpretating Date/Time 07/30/2017 22:05:05
== END 2017-07-30 11:37 | disposition short-term general hospital (02) | DRG 23 ==
LOC: NEPE 23:41 → NEDA 07-30 02:49 → N03A 07-30 03:33
PROVIDERS: ADMIT Internal Medicine Critical Care Medicine; ATTEND Internal Medicine Critical Care Medicine
PROC: 009600Z Drainage of Cerebral Ventricle with Drainage Device, Open Approach (ICD-10-PCS; principal; 2017-07-30)
PROC: 5A1935Z Respiratory Ventilation, Less than 24 Consecutive Hours (ICD-10-PCS; 2017-07-30)
PROC: 0BH17EZ Insertion of Endotracheal Airway into Trachea, Via Natural or Artificial Opening (ICD-10-PCS; 2017-07-30)
DX: I60.4 Nontraumatic subarachnoid hemorrhage from basilar artery (principal); J96.90 Respiratory failure, unspecified, unspecified whether with hypoxia or hypercapnia; I61.5 Nontraumatic intracerebral hemorrhage, intraventricular; R56.9 Unspecified convulsions; I10 Essential (primary) hypertension; R00.0 Tachycardia, unspecified; E87.6 Hypokalemia; E11.9 Type 2 diabetes mellitus without complications
CPT/HCPCS: 31500; 36600; 43753; 51702; 70450; 70496; 70498; 71045; 80053; 80307; 82550; 82805; 83735; 84100; 85025; 85610; 85730; 87641; 93005; 94002; 96374; 96375; J1953; J2060; J2250; J2405; J3010; J7030; J7050; Q9967